=== PATIENT | female | born 1990 | race Caucasian/White ===

== ENCOUNTER 2019-09-09 07:14 | Emergency (ER) | payer BC ==
[2019-09-09 07:31] VITALS: BP 135/92; PULSE 96
--- NOTE | 2019-09-09 07:51 | EDM.PDOC ---
ED HPI GENERAL MEDICAL PROBLEM - General Chief Complaint: ENT Problem Stated Complaint: DENTAL COMPLAINT Time Seen by Provider: 09/09/19 07:39 Source of Information: Reports: Patient History Limitations: Reports: No Limitations - History of Present Illness INITIAL COMMENTS - FREE TEXT/NARRATIVE: The patient presents with dental pain. She says she was chewing on a pea and had pain to her left lower jaw. She was not able to get into her dentist. She has no fever or chills. Onset: Sudden Duration: Day(s): Location: Reports: Other (dental pain) Quality: Reports: Sharp Severity: Moderate Improves with: Reports: None Worsens with: Reports: None Associated Symptoms: Reports: No Other Symptoms Left Lower Tooth/Teeth Pain Score (Numeric/FACES): 10 - Related Data Allergies Allergy/AdvReac Type Severity Reaction Status Date / Time acetaminophen [From Percocet] Allergy Severe Itching Verified 09/09/19 07:32 oxycodone [From Percocet] Allergy Severe Itching Verified 09/09/19 07:32 Sulfa (Sulfonamide Allergy Severe Other Verified 09/09/19 07:32 Antibiotics) Home Meds: Home Meds Hydrocodone/Acetaminophen [Hydrocodone-Acetamin 5-325 mg] 1 - 2 each PO Q6HR PRN #20 tablet 09/09/19 [Rx] Multivitamin [Multi-Vitamin Daily] 1 tab PO DAILY 09/09/19 [History] Penicillin V Potassium 500 mg PO Q6HR #40 tab 09/09/19 [Rx] Past Medical History - Past Health History Medical/Surgical History: Denies Medical/Surgical History Cardiovascular History: Reports: None Respiratory History: Reports: Asthma Gastrointestinal History: Reports: GERD HAND [employer] History: Reports: Psychiatric History: Reports: Anxiety Social & Family History - Family History Family Medical History: Noncontributory - Tobacco Use Smoking Status *Q: Never Smoker - Caffeine Use Caffeine Use: Reports: Coffee Other Caffeine Use: Occasional half-caf coffee - Recreational Drug Use Recreational Drug Use: No ED ROS ENT - Review of Systems Review Of Systems: See Below Constitutional: Reports: No Symptoms HEENT: Reports: Dental Pain Respiratory: Reports: No Symptoms Cardiovascular: Reports: No Symptoms Endocrine: Reports: No Symptoms GI/Abdominal: Reports: No Symptoms ED EXAM, ENT - Physical Exam Exam: See Below Exam Limited By: No Limitations General Appearance: Alert, No Apparent Distress Ears: Normal External Exam Nose: Normal Inspection Mouth/Throat: Other (Pain upon palpation to the left lower jaw near the canine tooth with erythema and edema) Course - Vital Signs Last Recorded V/S: Last Vital Signs Temp 97.2 F 09/09/19 07:27 Pulse 96 09/09/19 07:27 Resp 18 09/09/19 07:27 BP 135/92 H 09/09/19 07:27 Pulse Ox 98 09/09/19 07:27 Departure - Departure Time of Disposition: 07:50 Disposition: Home, Self-Care 01 Condition: Good Clinical Impression: Pain, dental, Dental abscess - Discharge Information *PRESCRIPTION DRUG MONITORING PROGRAM REVIEWED*: No *COPY OF PRESCRIPTION DRUG MONITORING REPORT IN PATIENT ANGEL: No Prescriptions: Hydrocodone/Acetaminophen [Hydrocodone-Acetamin 5-325 mg] 1 - 2 each PO Q6HR PRN #20 tablet PRN Reason: Pain Penicillin V Potassium 500 mg PO Q6HR #40 tab Referrals: Vickie Tyson PA-C [Primary Care Provider] - Additional Instructions: Take the pen VK 4 times per day for 10 days. Take the hydrocodone as needed for pain. Follow up with your dentist. Please return if you are worse. Sepsis Event Note (ED) - Evaluation Sepsis Screening Result: No Definite Risk - Focused Exam Vital Signs: Vital Signs Temp Pulse Resp BP Pulse Ox 09/09/19 07:27 97.2 F 96 18 135/92 H 98
== END 2019-09-09 08:04 | disposition home or self-care (01) ==
LOC: JD.ED 07:14
DX: K04.7 Periapical abscess without sinus (principal); Z88.5 Allergy status to narcotic agent; Z88.2 Allergy status to sulfonamides
CPT/HCPCS: 99282

== ENCOUNTER 2021-05-22 08:50 | Inpatient (IN) | payer BC ==
[~2021-05-22 08:50] MED LIST: Bupivacaine 0.25% 10 ML SDV ONE; Phenylephrine 1% 10 MG/ML SDV ONE
[2021-05-22] MEDS ORDERED: Nalbuphine 10 MG/1 ML Vial IVPUSH PRN (09:26)
[2021-05-22] MEDS ORDERED: Ondansetron 4 MG/2 ML SDV IVPUSH PRN (09:26)
[2021-05-22] MEDS ORDERED: Sodium Chloride 0.9% 10 ML Syringe FLUSH PRN (09:26)
[2021-05-22] MEDS ORDERED: Calcium Carbonate 500 MG Tab.Chew PO PRN (09:26)
[2021-05-22] MEDS ORDERED: Oxytocin/Lactated Ringers 10 UNIT/1,000 ML BAG IV SCH ×2 (09:30)
[2021-05-22] MEDS: Lactated Ringers 1,000 ML IV SCH ×2 (10:08→12:58)
[2021-05-22] MEDS ORDERED: Bupivacaine/fentaNYL/NS 100 ML Bag EPIDUR PRN (12:09)
[2021-05-22] MEDS ORDERED: fentaNYL 100 MCG/2 ML SDV EPIDUR PRN (12:09)
[2021-05-22] MEDS ORDERED: ePHEDrine 50 MG/ML SDV IVPUSH PRN (12:09)
[2021-05-22] MEDS ORDERED: diphenhydrAMINE 50 MG/ML SDV IVPUSH PRN (12:09)
[2021-05-22] MEDS ORDERED: Witch Hazel Medicated Pads 40/Jar TOP PRN (17:57)
[2021-05-22] MEDS ORDERED: Docusate Sodium 100 MG Cap PO PRN (17:57)
[2021-05-22] MEDS ORDERED: Acetaminophen 325 MG Tab PO PRN (17:57)
[2021-05-22] MEDS ORDERED: Benzocaine/Menthol 20%-0.5% Spray 78 GM Cannister TOP PRN (17:57)
[2021-05-22] MEDS ORDERED: Ibuprofen 600 MG Tab PO PRN (17:57)
[2021-05-22] MEDS ORDERED: Sodium Chloride 0.9% 10 ML Syringe FLUSH SCH (21:00)
[2021-05-23 16:43] VITALS: BP 129/84; PULSE 78
== END 2021-05-23 17:42 | disposition home or self-care (01) | DRG 807 ==
LOC: JD.OB 08:50 → OBSVTOIN 16:51 → JD.OB 16:51
PROVIDERS: ADMIT Obstetrics & Gynecology; ATTEND Obstetrics & Gynecology
PROC: 10E0XZZ Delivery of Products of Conception, External Approach (ICD-10-PCS; principal; 2021-05-22)
PROC: 10907ZC Drainage of Amniotic Fluid, Therapeutic from Products of Conception, Via Natural or Artificial Opening (ICD-10-PCS; 2021-05-22)
PROC: 3E033VJ Introduction of Other Hormone into Peripheral Vein, Percutaneous Approach (ICD-10-PCS; 2021-05-22)
PROC: 3E0R3BZ Introduction of Anesthetic Agent into Spinal Canal, Percutaneous Approach (ICD-10-PCS; 2021-05-22)
DX: O80 Encounter for full-term uncomplicated delivery (principal); Z37.0 Single live birth; Z3A.39 39 weeks gestation of pregnancy; Z20.822 Contact with and (suspected) exposure to COVID-19
CPT/HCPCS: 01967; 36415; 51702; 59025; 59409; 85025; 86592; 86850; 86900; 86901; A9270-GY; J2370; J2405; J2590; J3010; J3490; J7120; U0002